=== PATIENT | male | born 1995 | race Caucasian/White ===

== ENCOUNTER 2019-03-04 03:28 | Emergency (ER) | payer OTHER ==
[~2019-03-04] VITALS: Ht 165.1 cm; Wt 63.5 kg
[2019-03-04 03:53] VITALS: Ht 165.1 cm; Wt 63.5 kg
[2019-03-04 03:54] LABS: BASOPHILS 0.2 % (0-2); EOSINOPHILS 1.1 % (0-7); HEMATOCRIT 49.7 % (42.0-54.0); HEMOGLOBIN 17.9 g/dL (13.5-17.5); IMMATURE GRANULOCYTES 0.5 % (0-5); LYMPHOCYTES 28.3 % (15-50); MEAN PLATELET VOLUME 10.1 fL (7.4-10.4); MONOCYTES 9.8 % (2-11); NEUTROPHILS 60.1 % (40-80); PLATELET COUNT 330 10x3/uL (130-400); RBC 4.97 10x6/uL (4.20-6.10); RDW 12.6 % (11.5-14.5); WBC 13.2 10x3/uL (4.8-10.8)
[2019-03-04 04:04] LABS: CALC OSMOLALITY 283 mosm/kg (275-300); CARBON DIOXIDE 20.2 mmol/L (21.0-32.0); CHLORIDE - SERUM 100 mmol/L (98-107); CREATININE - SERUM 1.3 mg/dL (0.6-1.3); GLUCOSE 118 mg/dL (74-106); POTASSIUM - SERUM 3.2 mmol/L (3.5-5.1); SODIUM 142 mmol/L (136-145); UREA NITROGEN 13 mg/dL (7-18); eGFR NON AFRICAN AMERICAN 73 mL/min (90-120)
[2019-03-04 04:05] LABS: APTT 26.6 SECONDS (22.8-39.4); INR 1.05 (0.85-1.17); PROTIME 13.2 SECONDS (11.6-15.0)
[2019-03-04 04:12] LABS: ALBUMIN 4.3 g/dL (3.4-5.0); ALKALINE PHOSPHATASE 93 U/L (46-116); ALT (SGPT) 59 U/L (10-68); AMYLASE - SERUM 37 U/L (25-115); BILIRUBIN - TOTAL 0.77 mg/dL (0.2-1.3); LIPASE 90 U/L (73-393); PROTEIN - SERUM 8.3 g/dL (6.4-8.2)
[2019-03-04 04:13] LABS: TROPONIN-I < 0.017 ng/mL (0.000-0.060)
[2019-03-04 05:20] VITALS: BP 138/78
== END 2019-03-04 05:21 | disposition other institution (70) ==
LOC: D.ER 03:28 → EDBD 03:28 → D.ER 05:21
PROVIDERS: Family Medicine
DX: S27.331A Laceration of lung, unilateral, initial encounter (principal); X99.9XXA Assault by unspecified sharp object, initial encounter; Y93.9 Activity, unspecified; Y92.9 Unspecified place or not applicable; S21.91XA Laceration without foreign body of unspecified part of thorax, initial encounter; S31.119A Laceration without foreign body of abdominal wall, unspecified quadrant without penetration into peritoneal cavity, initial encounter; S21.112A Laceration without foreign body of left front wall of thorax without penetration into thoracic cavity, initial encounter